=== PATIENT | female | born 1955 | race Two or more races ===

== ENCOUNTER 2018-06-27 11:37 | Outpatient (CLI) | payer OTHER | END 2018-06-27 11:50 | disposition home or self-care (01) | LOC: NUCLEAR 11:37 | DX: R00.2 Palpitations (principal) ==

== ENCOUNTER 2018-06-27 14:28 | Outpatient (CLI) | payer OTHER | END 2018-06-27 14:30 | disposition home or self-care (01) | LOC: RAD | DX: R10.10 Upper abdominal pain, unspecified (principal); R10.30 Lower abdominal pain, unspecified; N60.12 Diffuse cystic mastopathy of left breast; N60.11 Diffuse cystic mastopathy of right breast; R07.89 Other chest pain ==

== ENCOUNTER 2018-06-28 07:44 | Outpatient (CLI) | payer OTHER | END 2018-06-28 08:32 | disposition home or self-care (01) | LOC: LAB 07:44 | DX: F41.1 Generalized anxiety disorder (principal); F40.11 Social phobia, generalized; F34.9 Persistent mood [affective] disorder, unspecified; N39.0 Urinary tract infection, site not specified; R78.9 Finding of unspecified substance, not normally found in blood; R19.09 Other intra-abdominal and pelvic swelling, mass and lump; E55.9 Vitamin D deficiency, unspecified; N95.1 Menopausal and female climacteric states; E11.65 Type 2 diabetes mellitus with hyperglycemia; E78.00 Pure hypercholesterolemia, unspecified; E03.8 Other specified hypothyroidism; D64.89 Other specified anemias ==

== ENCOUNTER 2018-07-05 14:00 | Outpatient (CLI) | payer OTHER | END 2018-07-05 14:12 | disposition home or self-care (01) | LOC: NUCLEAR 14:00 | DX: M81.0 Age-related osteoporosis without current pathological fracture (principal) ==

== ENCOUNTER 2018-10-19 17:37 | Emergency (ER) | payer OTHER ==
[~2018-10-19] VITALS: Ht 157.5 cm; Wt 99.8 kg
== END 2018-10-19 18:40 | disposition home or self-care (01) ==
LOC: ER 17:37
DX: S20.01XA Contusion of right breast, initial encounter (principal); W18.39XA Other fall on same level, initial encounter; Y93.89 Activity, other specified; Y92.488 Other paved roadways as the place of occurrence of the external cause; Y99.8 Other external cause status

== ENCOUNTER 2019-08-27 11:20 | Emergency (ER) | payer OTHER ==
[~2019-08-27] VITALS: Ht 157.5 cm; Wt 103.4 kg
== END 2019-08-27 14:26 | disposition home or self-care (01) ==
LOC: ER 11:20
DX: S82.61XA Displaced fracture of lateral malleolus of right fibula, initial encounter for closed fracture (principal); W01.198A Fall on same level from slipping, tripping and stumbling with subsequent striking against other object, initial encounter; Y93.01 Activity, walking, marching and hiking; Y92.89 Other specified places as the place of occurrence of the external cause; Y99.8 Other external cause status

== ENCOUNTER 2019-09-04 12:58 | Outpatient (CLI) | payer MEDICARE, OTHER | END 2019-09-04 13:30 | disposition home or self-care (01) | LOC: RAD 12:58 | DX: S82.61XA Displaced fracture of lateral malleolus of right fibula, initial encounter for closed fracture (principal) ==

== ENCOUNTER 2019-12-09 13:29 | Outpatient (CLI) | payer OTHER | END 2019-12-09 13:55 | disposition home or self-care (01) | LOC: NUCLEAR 13:29 | PROVIDERS: ATTEND Orthopaedic Surgery | DX: M81.0 Age-related osteoporosis without current pathological fracture (principal) ==

== ENCOUNTER 2019-12-13 08:00 | Outpatient (CLI) | payer OTHER | END 2019-12-13 08:10 | disposition home or self-care (01) | LOC: LAB 08:00 | PROVIDERS: ATTEND Family Medicine | DX: G47.33 Obstructive sleep apnea (adult) (pediatric) (principal); F41.1 Generalized anxiety disorder; E78.2 Mixed hyperlipidemia; E44.1 Mild protein-calorie malnutrition; E55.9 Vitamin D deficiency, unspecified; E66.01 Morbid (severe) obesity due to excess calories; R06.02 Shortness of breath; R00.2 Palpitations; Z68.41 Body mass index [BMI] 40.0-44.9, adult; Z12.11 Encounter for screening for malignant neoplasm of colon; M25.50 Pain in unspecified joint; R06.83 Snoring; N18.9 Chronic kidney disease, unspecified; E53.8 Deficiency of other specified B group vitamins; E03.8 Other specified hypothyroidism; E21.2 Other hyperparathyroidism; M85.88 Other specified disorders of bone density and structure, other site; E88.89 Other specified metabolic disorders; E56.1 Deficiency of vitamin K ==

== ENCOUNTER 2019-12-13 09:13 | Outpatient (CLI) | payer OTHER | END 2019-12-13 09:16 | disposition home or self-care (01) | LOC: MAMO-SONO 09:13 | PROVIDERS: ATTEND Obstetrics & Gynecology | DX: Z12.31 Encounter for screening mammogram for malignant neoplasm of breast (principal); Z87.898 Personal history of other specified conditions; N64.4 Mastodynia; N60.19 Diffuse cystic mastopathy of unspecified breast ==

== ENCOUNTER 2019-12-17 06:59 | Outpatient (CLI) | payer OTHER | END 2019-12-17 07:04 | disposition home or self-care (01) | LOC: LAB 06:59 | PROVIDERS: ATTEND Family Medicine | DX: G47.33 Obstructive sleep apnea (adult) (pediatric) (principal); F41.1 Generalized anxiety disorder; E78.2 Mixed hyperlipidemia; E44.1 Mild protein-calorie malnutrition; E55.9 Vitamin D deficiency, unspecified; E66.01 Morbid (severe) obesity due to excess calories; R06.02 Shortness of breath; R00.2 Palpitations; Z68.41 Body mass index [BMI] 40.0-44.9, adult; Z12.11 Encounter for screening for malignant neoplasm of colon; M25.50 Pain in unspecified joint; R06.83 Snoring; E53.8 Deficiency of other specified B group vitamins ==

== ENCOUNTER 2020-04-23 08:04 | Outpatient (CLI) | payer OTHER | END 2020-04-23 08:09 | disposition home or self-care (01) | LOC: LAB 08:04 | PROVIDERS: ATTEND Family Medicine | DX: E78.2 Mixed hyperlipidemia (principal); F41.1 Generalized anxiety disorder; G47.33 Obstructive sleep apnea (adult) (pediatric); E44.1 Mild protein-calorie malnutrition; E55.9 Vitamin D deficiency, unspecified; E66.01 Morbid (severe) obesity due to excess calories; Z68.41 Body mass index [BMI] 40.0-44.9, adult; Z12.11 Encounter for screening for malignant neoplasm of colon ==

== ENCOUNTER → 2021-01-08 14:28 | Outpatient (CLI) | payer OTHER | END | disposition home or self-care (01) | LOC: MAMO-SONO 14:15 | DX: N64.59 Other signs and symptoms in breast (principal); N64.4 Mastodynia; Z12.31 Encounter for screening mammogram for malignant neoplasm of breast; Z87.898 Personal history of other specified conditions ==

== ENCOUNTER 2022-01-12 07:56 | Outpatient (CLI) | payer OTHER | END 2022-01-12 08:09 | disposition home or self-care (01) | LOC: MAMO-SONO 07:56 | PROVIDERS: ATTEND Obstetrics & Gynecology | DX: N64.4 Mastodynia (principal); N60.19 Diffuse cystic mastopathy of unspecified breast ==

== ENCOUNTER 2022-01-14 09:46 | Outpatient (CLI) | payer OTHER | END 2022-01-14 09:47 | disposition home or self-care (01) | LOC: NUCLEAR 09:46 | PROVIDERS: ATTEND Obstetrics & Gynecology | DX: M81.0 Age-related osteoporosis without current pathological fracture (principal) ==

== ENCOUNTER 2023-06-12 09:58 | Outpatient (CLI) | payer OTHER | END 2023-06-12 10:05 | disposition home or self-care (01) | LOC: MAMO-SONO 09:58 | PROVIDERS: ATTEND Obstetrics & Gynecology | DX: N64.4 Mastodynia (principal); N60.19 Diffuse cystic mastopathy of unspecified breast; Z12.31 Encounter for screening mammogram for malignant neoplasm of breast ==

== ENCOUNTER 2024-04-04 13:28 | Outpatient (CLI) | payer OTHER | END 2024-04-04 13:29 | disposition home or self-care (01) | LOC: NUCLEAR 13:28 | DX: M81.0 Age-related osteoporosis without current pathological fracture (principal) ==

== ENCOUNTER 2024-06-18 11:13 | Outpatient (CLI) | payer OTHER | END 2024-06-18 11:19 | disposition home or self-care (01) | LOC: MAMO-SONO 11:13 | PROVIDERS: ATTEND Obstetrics & Gynecology | DX: N64.4 Mastodynia (principal); N60.19 Diffuse cystic mastopathy of unspecified breast; Z12.31 Encounter for screening mammogram for malignant neoplasm of breast ==

== ENCOUNTER 2025-06-25 08:18 | Outpatient (CLI) | payer OTHER | END 2025-06-25 08:37 | disposition home or self-care (01) | LOC: MAMO-SONO 08:18 | PROVIDERS: ATTEND Obstetrics & Gynecology | DX: N64.4 Mastodynia (principal); N60.19 Diffuse cystic mastopathy of unspecified breast; Z12.31 Encounter for screening mammogram for malignant neoplasm of breast ==